=== PATIENT | male | born 1960 | race African-American/Black ===

== ENCOUNTER 2023-06-09 00:10 | Emergency (ER) | payer OTHER ==
[2023-06-09 02:19] LABS: #Basophils 0.1 thou/uL (0.0-0.2); #Eosinphils 0.1 thou/uL (0.0-0.7); #Monocytes 1.2 thou/uL (0.11-0.59); %Basophils 0.5 % (0.0-1.0); %Lymphocytes 15.7 % (21.0-51.0); %Monocytes 8.5 % (0.0-10.0); %Neutrophils 73.9 % (42.0-75.0); Hemoglobin 9.7 g/dL (14.0-18.0); Mean Corpuscular HGB CONC 36.1 g/dL (32.0-36.0); Mean Corpuscular Hemoglobin 36.2 pg (27.0-31.0); Mean Corpuscular Volume 100.4 fl (78.0-98.0); Mean Platelet Volume 9.9 fL (7.4-10.4); Platelet Count 181 10x3/uL (130-400); RBC Distribution Width 15.6 % (11.5-14.5); Red Blood Cell (RBC) Count 2.68 mill/uL (4.70-6.10); White Blood Cell (WBC) Count 13.6 10x3/uL (4.8-10.8)
[2023-06-09 02:35] LABS: INR-International Normal Ratio 2.2; Prothrombin Time 25.2 sec (12.0-14.7)
[2023-06-09 02:36] LABS: PTT 44.2 sec (22.9-36.1)
[2023-06-09 02:45] LABS: ALT (SGPT) 106 U/L (8-55); AST (SGOT) 344 U/L (5-34); Albumin 1.8 g/dL (3.4-4.8); Alkaline Phosphatase 452 U/L (40-110); Anion Gap 13 mmol/L (10-20); BUN (Urea Nitrogen) 19 mg/dL (8.4-25.7); Bilirubin, Total 20.6 mg/dL (0.2-1.2); Calc. Creatinine Clearance 0 mL/min (70-130); Calcium 8.3 mg/dL (7.8-10.44); Carbon Dioxide 23 mmol/L (23-31); Chloride 96 mmol/L (98-107); Estimated GFR 56; Globulin 4.5 g/dL (2.4-3.5); Glucose 110 mg/dL (80-115); Lipase 675 U/L (8-78); Magnesium 2.2 mg/dL (1.6-2.6); Potassium 3.6 mmol/L (3.5-5.1); Protein, Total 6.3 g/dL (5.8-8.1); Sodium 128 mmol/L (136-145)
[2023-06-09] MEDS ORDERED: Ondansetron PF 4 MG/2 ML Vial ONE (04:38)
[2023-06-09] MEDS ORDERED: Piperacillin/Tazobactam 4.5 GM VIAL ONE (04:50)
[2023-06-09 05:32] LABS: Bilirubin 4+ (Negative); Blood, Urine Negative (Negative); CAUTI Indications for Culture Pelvic or flank pain; Clarity Turbid (Clear); Glucose, Urine (Dipstick) Normal (Negative); Ketone, Urine Negative (Negative); Leukocyte Negative Leu/uL (Negative); Nitrite Negative (Negative); Protein, Urine (Dipstick) 10 mg/dL (Neg-Trace); RBC/HPF 0-3 HPF (0-3); Specific Gravity, Urine 1.032 (1.002-1.036); Urobilinogen Normal mg/dL (Less than 2)
[2023-06-09 05:33] LABS: Bacteria/HPF 1+ HPF (None Seen)
[2023-06-09 05:35] LABS: Urine Culture Reflex No No
[2023-06-09] MEDS ORDERED: fentaNYL 50 mcg/mL 1 mL Vial ONE (05:59)
[2023-06-09] MEDS ORDERED: Iopamidol-370 76% 500 ML MDV (1 ML CHARGE) ONE (11:42)
== END 2023-06-09 10:05 | disposition short-term general hospital (02) ==
LOC: ERS 00:10
DX: C25.9 Malignant neoplasm of pancreas, unspecified (principal); K80.50 Calculus of bile duct without cholangitis or cholecystitis without obstruction; K85.90 Acute pancreatitis without necrosis or infection, unspecified
CPT/HCPCS: 36415; 74177; 80053; 81001; 82140; 83690; 83735; 84484; 85025; 85610; 85730; 93005; 96365; 96375; J2405; J2543; J3010; Q9967